=== PATIENT | female | born 1980 | race Hispanic/Latino ===

== ENCOUNTER 2017-12-29 11:12 | Day surgery (SDC) | payer MEDICAID, OTHER, SELFPAY ==
[2017-12-29 12:09] LABS: Hemoglobin 10.8 g/dL (12.0-16.0); Mean Corpuscular HGB CONC 33.9 g/dL (32.0-36.0); Mean Corpuscular Hemoglobin 31.8 pg (27.0-31.0); Mean Corpuscular Volume 93.8 fl (81.0-99.0); Mean Platelet Volume 7.4 fL (7.4-10.4); Platelet Count 293 thou/uL (130-400); RBC Distribution Width 11.3 % (11.5-14.5); Red Blood Cell (RBC) Count 3.38 mill/uL (4.20-5.40)
[2017-12-29 12:31] LABS: Band 9 % (5-11); Lymphocytes 16 % (21-51); MDiff Complete? YES; Monocytes 1 % (0-10); Neutrophil 74 % (42-75); RBC Morphology Normal
--- NOTE | 2017-12-29 13:01 | ULT ---
ULTRASOUND PELVIC ULTRASOUND TRANSVAGINAL DOPPLER DUPLEX: 12/29/2017 HISTORY: A 37-year-old, female with menorrhagia. TECHNIQUE: Transabdominal transducer used to evaluate intrapelvic contents using the urinary bladder as an acous tic window. Endovaginal transducer used to visualize intrapelvic contents in greater detail. Color fl ow Doppler and Pulsed Doppler spectral waveform analysis of ovaries. FINDINGS: The uterus measures approximately 9 x 5.5 x 6 cm. At the lower uterine segment/cervix, there is a large, well circumscribed, round, cystic structure. If it is the gestational sac, it would correspond to 8 weeks and 2 days gestational age. Within one corner of this cystic structure, there is an approximately 0.9 cm structure with intermediate echogen icity, and no detectable heart activity. This probably represents a first trimester pole . The endometrial stripe in the uterine body and fundus is slightly heterogeneously hypoechoic and i soechoic, measuring approximately 1.8 cm (18 mm). The bilateral ovaries are not visualized. No free fluid is visualized in the cul-de-sac. IMPRESSION: Evidence for first trimester in progress. LUIS ALBERTO Hicks POS: [facility]
[2017-12-29] MEDS ORDERED: LR / Pitocin 40 units/1000 ml 1,000 ML IV SCH (13:15)
[2017-12-29] MEDS ORDERED: Ampicillin/Sulbactam 3 GM in Sodium Chloride 0.9% 100 ML IVPB SCH (13:15)
--- NOTE | 2017-12-29 13:16 | RAD ---
AP VIEW CHEST: INDICATIONS: Vaginal bleeding. Abdominal cramping. IMPRESSION: Low lung volumes with accentuation of the cardiac silhouette and pulmonary vasculature. No focal con solidation, pleural effusion, or pneumothorax demonstrated. POS: [facility]
--- NOTE | 2017-12-29 14:20 | HP ---
DATE OF ADMISSION: 12/29/2017 ADMITTING PHYSICIAN: Lauri Nguyen M.D. ER PHYSICIAN: Ricardo Reis M.D. CHIEF COMPLAINT: , vaginal bleeding. HISTORY OF PRESENT ILLNESS: Ms. Almaguer is a 37-year-old G5, P3, who reports a last menstru al period in September, who has been seen in the clinic twice and had ultrasounds that demonstrated a sac, but no heartbeat. She was seen over the last 2 weeks at [facility]. She presents today complaining of heavy vaginal bleeding and cramping. In the ER, Dr. Reis examined her and she did p ass tissue. I was notified. PAST OBSTETRICAL HISTORY: Includes three vaginal deliveries and 1 other miscarriage. PAST MEDICAL HISTORY: Unremarkable. PAST SURGICAL HISTORY: None. CURRENT MEDICATIONS: vitamins. ALLERGIES: No known allergies. SOCIAL HISTORY: She denies tobacco or alcohol use. PHYSICAL EXAMINATION: VITAL SIGNS: At the present time, her blood pressure is stable. She is afebrile. She is not tachyc ardic. LUNGS: Chest clear to auscultation. CARDIOVASCULAR: Regular rate and rhythm. ABDOMEN: Soft and nontender. PELVIS: There is copious blood. Her cervix is open to a fingertip. The uterus is approximately 8 w eeks in size. ASSESSMENT: Incomplete . PLAN: At this time, we will proceed with suction D&C. The risk of the procedure including anesthesi a, bleeding, infection as well as damage to adjacent organs, requiring repair, removal, or transfusio n. I have been discussed with her in detail and she wishes to proceed.
[2017-12-29 14:21] LABS: ALT (SGPT) 14 U/L (8-55); AST (SGOT) 15 U/L (5-34); Albumin 3.7 g/dL (3.5-5.0); Alkaline Phosphatase 88 U/L (40-150); Anion Gap 10 mmol/L (10-20); BUN (Urea Nitrogen) 16 mg/dL (7.0-18.7); Bilirubin, Total 0.3 mg/dL (0.2-1.2); Calc. Creatinine Clearance 0 mL/min (70-130); Calcium 8.7 mg/dL (7.8-10.44); Carbon Dioxide 22 mmol/L (22-29); Chloride 104 mmol/L (98-107); Estimated GFR-MDRD Greater than 90; Globulin 3.4 g/dL (2.4-3.5); Glucose 144 mg/dL (70-105); Potassium 3.8 mmol/L (3.5-5.1); Protein, Total 7.1 g/dL (6.0-8.3); Sodium 132 mmol/L (136-145)
[2017-12-29 14:55] LABS: Bilirubin Negative (Negative); Blood, Urine Negative (Negative); Clarity CLEAR (Clear); Glucose, Urine (Dipstick) Negative (Negative); Leukocyte Negative (Negative); Nitrite Negative (Negative); Protein, Urine (Dipstick) Negative (Neg-Trace); Specific Gravity, Urine 1.021 (1.002-1.036); Urobilinogen 0.2 mg/dL (0.2-1.0)
[2017-12-29] MEDS ORDERED: Midazolam HCl 2 mg/2 ml Vial ONE (16:13)
[2017-12-29] MEDS ORDERED: Fentanyl 100 MCG/2 ML VIAL ONE (16:13)
[2017-12-29] MEDS ORDERED: Promethazine HCl 25 MG/ML VIAL ONE (16:13)
[2017-12-29] MEDS ORDERED: Propofol 200 MG/20 ML VIAL ONE (16:51)
[2017-12-29] MEDS ORDERED: Dexamethasone 20 MG/5 ML VIAL ONE (16:51)
[2017-12-29] MEDS ORDERED: Ketorolac Tromethamine 30 MG/ML VIAL ONE (16:51)
[2017-12-29] MEDS ORDERED: Labetalol 100 MG/20 ML MDV ONE (16:51)
[2017-12-29] MEDS ORDERED: Ondansetron HCl/PF 4 MG/2 ML Vial ONE (16:51)
[2017-12-29] MEDS ORDERED: Glycopyrrolate 0.2 MG/ML 5 ML SYRINGE ONE (16:51)
[2017-12-29] MEDS ORDERED: Lidocaine 1% PF 5 ML VIAL ONE (16:51)
--- NOTE | 2017-12-29 17:56 | OP ---
DATE OF PROCEDURE: 12/29/2017 ATTENDING PHYSICIAN: Patrick Carreon M.D. PREOPERATIVE DIAGNOSIS: Incomplete . POSTOPERATIVE DIAGNOSIS: Incomplete . PROCEDURE: Suction curettage. ANESTHESIA: IV sedation with LMA. ESTIMATED BLOOD LOSS: Less than 100 mL. COMPLICATIONS: None. TECHNIQUE IN DETAIL: After good IV sedation was achieved, the patient was prepped and draped in the usual sterile fashion in the dorsal lithotomy position. The patient had been bleeding heavily and Pi tocin IV has been started. The cervix was found to be widely open. The anterior aspect of the cervi x was grasped with a ring forceps and the suction curette was then passed through all quadrants of th e uterus. Only what appeared to be a small amount of products of conception were obtained. Sharp cu rette was then passed through all quadrants and no further fragments were obtained. All instruments were then removed from the vagina. Sponge, lap, and instrument counts were correct. The patient george erated the procedure well and was taken to the recovery room in good condition.
== END 2017-12-29 17:40 | disposition home or self-care (01) ==
LOC: ERS 11:12 → SDC 14:31 → ERS 14:31 → SDC 17:40 → ERS 19:59
PROVIDERS: ATTEND Obstetrics & Gynecology
PROC: 10D17ZZ Extraction of Products of Conception, Retained, Via Natural or Artificial Opening (ICD-10-PCS; principal; 2017-12-29)
DX: O03.1 Delayed or excessive hemorrhage following incomplete spontaneous abortion (principal); Z79.1 Long term (current) use of non-steroidal anti-inflammatories (NSAID); Z79.899 Other long term (current) drug therapy
CPT/HCPCS: 36415; 51701; 71045; 76856; 80053; 81003; 83605; 84702; 85025; 86850; 86900; 86901; 87040; 87086; 88305; 96361; 96365; J0295; J1100; J1885; J2001; J2250; J2405; J2550; J2704; J3010; J7050

== ENCOUNTER 2019-01-29 07:17 | Emergency (ER) | payer OTHER, SELFPAY ==
[2019-01-29 08:01] LABS: #Basophils 0.1 thou/uL (0.0-0.2); #Eosinphils 0.3 thou/uL (0.0-0.7); #Lymphocytes 3.8 thou/uL (1.20-3.40); #Monocytes 0.6 thou/uL (0.11-0.59); #Neutrophils 9.2 thou/uL (1.40-6.50); %Basophils 0.6 % (0.0-1.0); %Eosinophils 2.1 % (0.0-10.0); %Lymphocytes 27.4 % (21.0-51.0); %Monocytes 4.4 % (0.0-10.0); %Neutrophils 65.5 % (42.0-75.0); Hemoglobin 14.5 g/dL (12.0-16.0); Mean Corpuscular HGB CONC 33.4 g/dL (32.0-36.0); Mean Corpuscular Hemoglobin 30.5 pg (27.0-31.0); Mean Corpuscular Volume 91.2 fL (78.0-98.0); Mean Platelet Volume 7.4 fL (7.4-10.4); Platelet Count 300 thou/uL (130-400); RBC Distribution Width 11.6 % (11.5-14.5); Red Blood Cell (RBC) Count 4.76 mill/uL (4.20-5.40)
--- NOTE | 2019-01-29 09:59 | ULT ---
TRANSABDOMINAL AND TRANSVAGINAL PELVIC ULTRASOUND WITH DOPPLER: D ATE: 01/29/2019. PROVIDED CLINICAL HISTORY: Vaginal bleeding. FINDINGS: The uterus measures about 9.6 x 5 x 5.7 cm. There is no evidence for an intrauterine gestational sac . There is somewhat inhomogeneous prominence of the contents of the uterine endometrial canal measur ing about 1.7 cm in thickness. The left ovary appears sonographically unremarkable. The right ovary is not visualized. There is no evidence for free pelvic fluid. IMPRESSION: 1. No evidence for an intrauterine gestational sac. Correlation with followup beta HCG values is re commended. 2. Nonspecific prominence of the contents of the endometrial canal. POS: [facility]
== END 2019-01-29 09:11 | disposition home or self-care (01) ==
LOC: ERS 07:17
DX: O03.9 Complete or unspecified spontaneous abortion without complication (principal)
CPT/HCPCS: 36415; 76856; 84702; 85025; 86900; 86901

== ENCOUNTER 2019-06-06 09:17 | Outpatient (CLI) | payer SELFPAY ==
--- NOTE | 2019-06-06 09:42 | MMO ---
Bilateral MAMMO Bilat Screen [facility]DI. CLINICAL HISTORY: Patient is 38 years old and is seen for screening. The patient has no family history of breast cancer. The patient has no personal history of cancer. VIEWS: The views performed were: bilateral craniocaudal and bilateral mediolateral oblique. This study has been interpreted with the assistance of computer-aided detection. MAMMOGRAM FINDINGS: The breasts are heterogeneously dense, which could obscure a lesion on mammography. There is an equal density nodule with obscured margins seen in the outer region of the right breast. In the left breast, there are no suspicious masses, calcifications or areas of architectural distortion. IMPRESSION: NODULE IN THE RIGHT BREAST REQUIRES ADDITIONAL EVALUATION. SPOT COMPRESSION IS RECOMMENDED. AN ULTRASOUND EXAM IS RECOMMENDED IF NEEDED. ACR BI-RADS Category 0 - Incomplete: Need additional imaging evaluation. [facility] will notify the patient of the need for additional imaging services. MAMMOGRAPHY NOTE: 1. A negative mammogram report should not delay a biopsy if a dominant of clinically suspicious mass is present. 2. Approximately 10% to 15% of breast cancers are not detected by mammography. 3. Adenosis and dense breasts may obscure an underlying neoplasm. Reported by: MARITZA BROWER MD Electonically Signed: [id number]
== END 2019-06-06 09:18 | disposition home or self-care (01) ==
LOC: SCSMAMMO 09:17
PROVIDERS: ATTEND Advanced Practice Midwife
DX: Z12.31 Encounter for screening mammogram for malignant neoplasm of breast (principal); N63.10 Unspecified lump in the right breast, unspecified quadrant
CPT/HCPCS: 77067